=== PATIENT | female | born 1960 | race Caucasian/White ===

== ENCOUNTER 2016-09-21 20:17 | Emergency (ER) | payer OTHER ==
[2016-09-21 21:04] VITALS: BP 94/49
[2016-09-21] MEDS ORDERED: Ibuprofen TAB* 600 MG PO ONE (22:50)
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
== END 2016-09-21 23:02 | disposition home or self-care (01) ==
LOC: UCCORT 20:17
DX: S40.811A Abrasion of right upper arm, initial encounter (principal); S46.911A Strain of unspecified muscle, fascia and tendon at shoulder and upper arm level, right arm, initial encounter; X58.XXXA Exposure to other specified factors, initial encounter; Y93.F9 Activity, other caregiving; Y92.129 Unspecified place in nursing home as the place of occurrence of the external cause; Y99.0 Civilian activity done for income or pay; E03.9 Hypothyroidism, unspecified; I10 Essential (primary) hypertension; Z90.49 Acquired absence of other specified parts of digestive tract; F17.210 Nicotine dependence, cigarettes, uncomplicated
CPT/HCPCS: 99212; A9270-GY; G0463